=== PATIENT | male | born 1975 | race African-American/Black ===

== ENCOUNTER 2019-09-25 15:55 | Emergency (ER) | payer SELFPAY ==
--- NOTE | 2019-09-25 16:17 | ER Document Report ---
HPI - HPI Time Seen by Provider: 09/25/19 16:12 Notes: Otherwise healthy 44-year-old male presenting with cough, congestion, body aches and possible fevers over the last 2 to 3 days. Patient denies any known medical conditions. Denies any nausea, vomiting, diarrhea or abdominal pain. Past Medical History - General Information source: Patient - Social History Smoking Status: Never Smoker Frequency of alcohol use: None Drug Abuse: None Family History: Reviewed & Not Pertinent - Medical History Medical History: Negative Surgical Hx: Negative - Immunizations Immunizations up to date: Yes Vertical Provider Document - CONSTITUTIONAL Notes: PHYSICAL EXAMINATION: GENERAL: Well-appearing, well-nourished and in no acute distress. HEAD: Atraumatic, normocephalic. EYES: Pupils equal round and reactive to light, extraocular movements intact, sclera anicteric, conjunctiva are normal. ENT: Nares patent, oropharynx clear without exudates. Moist mucous membranes. NECK: Normal range of motion, supple without lymphadenopathy LUNGS: Breath sounds clear to auscultation bilaterally and equal. No wheezes rales or rhonchi. HEART: Regular rate and rhythm without murmurs ABDOMEN: Soft, nontender, nondistended abdomen. No guarding, no rebound. No masses appreciated. Musculoskeletal: Normal range of motion, no pitting or edema. No cyanosis. NEUROLOGICAL: Cranial nerves grossly intact. Normal speech, normal gait. Normal sensory, motor exams PSYCH: Normal mood, normal affect. SKIN: Warm, Dry, normal turgor, no rashes or lesions noted. Course - Re-evaluation Re-evalutation: Patient appears well, nontoxic, influenza is negative. Likely viral illness. Will discharge patient home with conservative measures. ED return precautions discussed, patient and verbalized understanding and agreement with plan. Discharge - Discharge Clinical Impression: Viral illness Condition: Stable Disposition: HOME, SELF-CARE Additional Instructions: Viral Syndrome The physician has diagnosed a viral infection. Viruses not only cause "colds," but can cause many different symptoms including generalized aching, fev er, headache, cough, diarrhea, nausea, vomiting, and fatigue. The treatment, for the most part, is simply relief of symptoms. This means that antibiotics are usually not given. Rest, fluids, pain medications and, occasionally, medication for the specific symptoms that are most bothersome will be prescribed. Use good handwashing to avoid passing the virus to others. Shared toys should be cleaned with disinfectant. Clean the toilets, sinks, and counter surfaces in bathrooms. Launder clothing in hot water. Contact the physician if you develop any new or unusual symptoms such as severe headache, stiff neck, high fever, chest pain, productive cough, or shortness of breath. You should be rechecked if you don't see marked improvement within seven to 10 days.
[2019-09-25 17:14] LABS: A TYPE INFLUENZA AG NEGATIVE (NEGATIVE)
[2019-09-25 17:15] LABS: B INFLUENZA AG NEGATIVE (NEGATIVE)
[2019-09-25] MEDS ORDERED: ACETAMINOPHEN 325 MG TABLET PO ONE (17:38)
[2019-09-25] MEDS ORDERED: IBUPROFEN 600 MG TABLET PO ONE (17:38)
[2019-09-25 18:01] VITALS: BP 126/92
== END 2019-09-25 18:00 | disposition home or self-care (01) ==
LOC: ER 15:55
DX: B34.9 Viral infection, unspecified (principal); R05 Cough; R52 Pain, unspecified
CPT/HCPCS: 87804; 99283